=== PATIENT | male | born 1985 | race Caucasian/White ===

== ENCOUNTER 2017-06-05 08:34 | Emergency (ER) | payer SELFPAY ==
[~2017-06-05] VITALS: Ht 188 cm; Wt 72.2 kg
[2017-06-05 08:44] VITALS: BP 181/105; PULSE 77; RESP 18; TEMP 97.8; O2SAT 100
--- NOTE | 2017-06-05 09:44 | PD ---
HPI Chief Complaint: Oral / Dental Pain or Problem Time Seen by Provider: 09:33 Travel History International Travel<30 days: No Contact w/Intl Traveler<30days: No Traveled to known affect area: No History of Present Illness HPI 31-year-old male presents emergency department for evaluation of right upper tooth and jaw pain that is worsened over the last 4 days. Patient denies any inciting events but states he has had "gum disease all of his life". Patient describes his pain as constant and pulsating. States the pain is moderate to severe. States that cool fluids decreases his pain. Says he is from [place] and trying to get his insurance transferred down to [place] and is planning on following up with the dentist and primary care physician. [facility] Past Medical History Medical History: Denies Significant Hx Diminished Hearing: No Influenza Vaccination: No ?: Not Past Surgical History Surgical History: No Previous Surgery Social History Alcohol Use: No Tobacco Use: No Allergies-Medications (Allergen,Severity, Reaction): Coded Allergies: Penicillins (Verified Allergy, Intermediate, 06/05/17) Reported Meds & Prescriptions Reported Meds & Active Scripts Active Magic Mouthwash Pediatric/Adult Liq (Lidocaine/Diphenhydr/Alum/Mg/Simeth) 60 Ml Susp 5 Ml SWISH-SWAL ACHS Each 5mL contains: Diphenydramine 4.5mg, Viscous Lidocaine 2% 10mg, Maalox Advanced Regular Strength 2.7ml Equal parts please Ibuprofen 800 Mg Tab 800 Mg PO Q8H PRN Review of Systems Except as stated in HPI: all other systems reviewed are Neg Physical Exam Narrative GENERAL: Well-developed, well-nourished in no apparent distress SKIN: Focused skin assessment warm/dry. HEAD: Atraumatic. Normocephalic. EYES: Pupils equal and round. No scleral icterus. No injection or drainage. ENT: No nasal bleeding or discharge. Mucous membranes pink and moist. Right ear with cerumen impaction NECK: Trachea midline. No JVD. No lymphadenopathy Jaw tracks normally Poor dentition, no areas of fluctuance or bulging CARDIOVASCULAR: Regular rate and rhythm. No murmur appreciated. RESPIRATORY: No accessory muscle use. Clear to auscultation. Breath sounds equal bilaterally. MUSCULOSKELETAL: No obvious deformities. No clubbing. No cyanosis. No edema. NEUROLOGICAL: Awake and alert. No obvious cranial nerve deficits. Motor grossly within normal limits. Normal speech. PSYCHIATRIC: Appropriate mood and affect; insight and judgment normal. Data Data Last Documented VS Vital Signs Date Time Temp Pulse Resp B/P (MAP) Pulse Ox O2 Delivery O2 Flow Rate FiO2 06/05/17 10:34 06/05/17 08:44 97.8 77 18 100 Room Air Orders Orders Acetamin-Hydrocod 325-5 Mg ([place] 5-325 (06/05/17 10:00) Ed Discharge Order (06/05/17 10:00) [facility] Medical Decision Making Medical Screen Exam Complete: Yes Emergency Medical Condition: Yes Differential Diagnosis Dental infection, tooth abscess, gingivitis Narrative Course 31-year-old male presents emergency department for evaluation of right upper tooth and jaw pain that is worsened over the last 4 days. Patient denies any inciting events but states he has had "gum disease all of his life". Patient describes his pain as constant and pulsating. States the pain is moderate to severe. States that cool fluids decreases his pain. Says he is from [place] and trying to get his insurance transferred down to [place] and is planning on following up with the dentist and primary care physician. Says he was in [place] last week and received antibiotics for his tooth. He believes that this pain is secondary to filling that he received a number of years ago. Says that this filling is "impossible to remove" and is frustrated with this problem. Vital signs stable. His exam findings consistent with poor dentition, likely deep tooth infection. We will give patient Percocet in the emergency department today as he does have significant pain. Because this is chronic, will not prescribe narcotics for outpatient use. Patient will receive ibuprofen and Magic mouth rinse for his pain. Follow-up with a dentist and primary care physician. Continue antibiotics as previously prescribed. Return to [facility] for worsening or persistent symptoms. Diagnosis Primary Impression: Dental infection Referrals: [facility] Dentist Patient Instructions: Dental Abscess (ED), General Instructions Additional Instructions: Take all medications as prescribed. Use the mouth rinse as needed for your pain. Follow-up with a dentist as soon as possible. Follow-up the primary care physician. Continue the antibiotics as previously prescribed. Scripts Wbtblojqzmgzgbv-Lbgepnybf-Dlb-Alum-Simeth Liq (Magic Mouthwash Pediatric/Adult Liq) 60 Ml Susp 5 ML SWISH-SWAL ACHS for Mouth sores, #60 ML 0 Refills Each 5mL contains: Diphenydramine 4.5mg, Viscous Lidocaine 2% 10mg, Maalox Advanced Regular Strength 2.7ml Equal parts please Prov: Armond Washington MD 06/05/17 Ibuprofen (Ibuprofen) 800 Mg Tab 800 MG PO Q8H Y for pain, #20 TAB 0 Refills Prov: Armond Washington MD 06/05/17 Disposition: 01 DISCHARGE HOME Condition: Stable Rosie Puente Jun 05, 2017 09:43
[2017-06-05] MEDS ORDERED: MAGICPED SWISH-SWAL (09:51)
[2017-06-05] MEDS ORDERED: IBUP1TAB7 PO (09:51)
[2017-06-05] MEDS ORDERED: ACETAMINOPHEN/HYDROcodone 325 MG/5 MG TAB PO ONE (10:00)
== END 2017-06-05 10:35 | disposition home or self-care (01) ==
LOC: PHED 08:34 → PHEFT 10:35
DX: K04.7 Periapical abscess without sinus (principal); Z88.0 Allergy status to penicillin
CPT/HCPCS: 99283